=== PATIENT | female | born 1955 | race Caucasian/White ===

== ENCOUNTER 2023-05-18 05:40 | Day surgery (SDC) | payer MEDICARE ==
[2023-05-15 16:09] VITALS: BP 150/85
[~2023-05-18] VITALS: Ht 162.6 cm; Wt 75.0 kg
[~2023-05-18 05:40] MED LIST: CALCIUM MAGNES1 EAC2 PO; CENTRUM WOMEN1 EACH PO; KRILL OIL 1,001 EACH PO; LEVOTHYROXINE88 MC1 PO; LISINOPRIL20 MG PO; METFORMIN HCL1000 M2 PO; MOVE FREE ULTR1 EAC2 PO; NAPROXEN250 MG PO; NEURONTIN600 MG PO; NUFOLA CAPSULE1 EAC1 PO; TYLENOL325 M1 PO; VENTOLIN HFA18 GM INH; ZOCOR20 MG PO; [UNRECOGNIZED DRUG - SUPPLY] MC
[2023-05-18 06:02] VITALS: BP 156/88
[2023-05-18] MEDS ORDERED: BIOTIN PLUS KE1 EACH PO (06:07)
--- NOTE | 2023-05-18 07:02 | NUR ---
EXERCISED MINISTRY OF PRESENCE PT TALKED OF REASONS FOR PROCEDURE. CONSENTED TO PRAYER. PRAYED FOR SUCCESSFUL PROCEDURE AND AWARENESS OF DIVINE PRESENCE.
[2023-05-18] MEDS ORDERED: TRAMADOL HCL50 MG PO (07:29)
--- NOTE | 2023-05-18 07:31 | NUR ---
05/18/23 0731 Mary Anne Julio 0727-PT TO PACU IN FS POSITION. EYES OPEN. PT DENIES PAIN NAUSEA AND DIZZINESS. BREATHING EASY AND UNLABORED. SPO2 >95% ON ROOM AIR. PT ORIENTED TO POC FOR PACU
[2023-05-18 07:53] VITALS: BP 155/92
--- NOTE | 2023-05-18 09:31 | NUR ---
PT CALLED REGARDING PRESCRIPTION. PT STATED SHE SPOKE TO HER PHARMACY AND THEY TOLD HER THAT THEY HAVE NOT RECEIVED ANY PRESCRIPTION. PHARMACY VERIFIED W/PT. THIS RN CALLED PHARMACY LISTED, THEY VERIFIED RECEIVING PRESCRIPTION AND THAT IT WOULD BE READY IN ABOUT AN HOUR. THIS RN CALLED PT W/UPDATE PER PHARMACY. PT STATED VERBAL UNDERSTANDING, NO FURTHER QUESTIONS OR NEEDS AT THIS TIME.
--- NOTE | 2023-05-21 14:22 | OR ---
[facility] [address], [place] [address] Signed DATE OF OPERATION: 05/18/2023 SURGEON: Olinda Gandhi MD PREOPERATIVE DIAGNOSIS: Carpal tunnel syndrome, right. POSTOPERATIVE DIAGNOSIS: Carpal tunnel syndrome, right. PROCEDURE PERFORMED: Carpal tunnel release, right. COLD PRESS OPERATOR: None. ANESTHESIA: Makenna block. TOURNIQUET TIME: 17 minutes. BRIEF HISTORY: Mo is a 67-year-old female with pain and numbness in her hand. Nerve conduction studies were consistent with significant carpal tunnel. Risks, benefits, and alternatives of surgery were discussed with her and she elected to proceed. DESCRIPTION OF PROCEDURE: Once consent was obtained, she was taken to the operating room. After adequate anesthesia, she was placed on the operating room table. All downside pressure points were well padded. The right arm was prepped and draped in a standard sterile fashion after establishment of Makenna block. The carpal tunnel was approached through a 1.5 cm incision in the distal wrist crease, carried through the skin and subcutaneous tissue. The transverse carpal ligament was identified after retraction of the palmaris longus. The transverse carpal ligament was dissected free of overlying soft tissue proximally and distally under loupe magnification. It was then transected approximately a cm and distally to the distal extent under direct visualization. The nerve was noted to be intact. The wound was copiously irrigated with normal saline after palpating the canal to ensure complete release. The wound was then closed using 3-0 nylon, injected with 10 mL of 0.25% plain Marcaine. The wound was dressed with bacitracin, Adaptic, 4 x 8s, and Electronically Signed By: OLINDA GANDHI MD 05/21/23 1422 PATIENT NAME: MO CRESPO OPERATIVE REPORT DATE OF : 59 REPORT #: [id number] PHYSICIAN: OLINDA GANDHI MD PCP: YADIRA EDWARD MD REPORT IS CONFIDENTIAL AND NOT TO BE RELEASED WITHOUT AUTHORIZATION [address] [place], [place] [address] Signed gauze. She tolerated the procedure well. All sponge, needle, and instrument counts were correct. Olinda Gandhi MD BA/ANILAL /[id number] Copies: ~ Electronically Signed By: OLINDA GANDHI MD 05/21/23 1422 PATIENT NAME: MO CRESPO OPERATIVE REPORT DATE OF : 59 REPORT #: [id number] PHYSICIAN: OLINDA GANDHI MD PCP: YADIRA EDWARD MD REPORT IS CONFIDENTIAL AND NOT TO BE RELEASED WITHOUT AUTHORIZATION
== END 2023-05-18 07:55 | disposition home or self-care (01) ==
LOC: DS 05:40 → OPS 05:40 → DS 07:00 → OPS 07:55
PROVIDERS: ATTEND Specialist
PROC: 01N50ZZ Release Median Nerve, Open Approach (ICD-10-PCS; principal; 2023-05-18 07:00)
DX: G56.03 Carpal tunnel syndrome, bilateral upper limbs (principal); I10 Essential (primary) hypertension; J45.909 Unspecified asthma, uncomplicated
CPT/HCPCS: J0690; J1885; J2704; J7121